=== PATIENT | male | born 1995 | race African-American/Black ===

== ENCOUNTER 2018-10-10 12:31 | Inpatient (IN) | payer OTHER ==
[~2018-10-10] VITALS: Ht 182.9 cm; Wt 82.6 kg
--- NOTE | 2018-10-10 12:41 | NUR ---
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 on room air, breathing evenly and unlabored. Connected to the monitor and pulse ox. Kept comfortable, will continue to monitor accordingly.
[2018-10-10 13:51] LABS: BASOPHILS % (AUTO) 0.4 % (0.0-2.0); EOSINOPHILS % (AUTO) 0.6 % (0.0-6.0); HEMATOCRIT 43 % (39-51); HEMOGLOBIN 14.6 g/dL (13.5-17.5); LYMPHOCYTES % (AUTO) 13.3 % (20.0-44.0); MEAN CORPUSCULAR HGB CONC 34 g/dl (31.0-36.0); MEAN CORPUSCULAR VOLUME 95 fL (80-96); MONOCYTES # (AUTO) 0.6 /CMM (0.1-1.30); MONOCYTES % (AUTO) 7.8 % (2.0-12.0); NEUTROPHILS # (AUTO) 6.1 /CMM (1.8-8.9); NEUTROPHILS % (AUTO) 77.9 % (43.0-81.0); PLATELET COUNT (AUTO) 239 /CMM (150-450); RED BLOOD CELL COUNT(AUTO) 4.56 MIL/uL (4.5-6.0); WHITE BLOOD COUNT (AUTO) 7.8 K/uL (4.3-11.0)
[2018-10-10 14:02] LABS: CALCIUM, SERUM 8.5 mg/dL (8.5-10.1); CARBON DIOXIDE 28 mmol/L (21-32); CHLORIDE 102 mmol/L (98-107); GLUCOSE 87 mg/dL (74-106); POTASSIUM 3.4 mmol/L (3.5-5.1); SODIUM SERUM 141 mmol/L (136-145); UREA NITROGEN, BLOOD 12 mg/dL (7-18)
[2018-10-10 14:11] LABS: ACETAMINOPHEN < 2 ug/ml (10-30); ALANINE AMINOTRANSFERASE 39 U/L (12-78); ALBUMIN 3.7 g/dL (3.4-5.0); ALCOHOL, BLOOD 27 mg/dL (0-0); ALKALINE PHOSPHATASE 103 U/L (46-116); ASPARTATE AMINOTRANSFERASE 28 U/L (15-37); BILIRUBIN,TOTAL 0.3 mg/dL (0.2-1.0); SALICYLATE < 2.8 mg/dL (2.8-20.0); TOTAL PROTEIN, SERUM 8.2 g/dL (6.4-8.2)
[2018-10-10 15:47] LABS: APPEARANCE,URINE Clear (CLEAR); BILIRUBIN,URINE Negative (NEGATIVE); BLOOD, URINE Trace-intact Ery/uL (NEGATIVE); COLOR,URINE Yellow (YELLOW); KETONES,URINE Negative (NEGATIVE); LEUKOCYTE ESTERASE ,URINE Negative (NEGATIVE); NITRITE, URINE Negative (NEGATIVE); PROTEIN,URINE Trace mg/dl (NEGATIVE); UGLUCOSE Negative (NEGATIVE); UROBILINOGEN,URINE 0.2 EU/dL (0.2)
[2018-10-10 16:10] LABS: BACTERIA,URINE Rare /HPF (None Seen); RBC,URINE 0-2 /HPF (0-2); SQUAMOUS EPITHELIAL CELL,UR Rare /HPF (None Seen); WBC,URINE 0-2 /HPF (0-3)
--- NOTE | 2018-10-10 16:29 | NUR ---
CALLED FOR MED SURGE BED, AND TURNED IN MOVE SHEET
--- NOTE | 2018-10-10 17:02 | NUR ---
received a call from house sup patient is going to room 316-2.
--- NOTE | 2018-10-10 17:43 | NUR ---
REPORT GIVEN TO SUSAN HALL FOR RADHA.
--- NOTE | 2018-10-10 18:16 | NUR ---
CALLED [facility], PAGED MYSTERY SHOPPER
--- NOTE | 2018-10-10 18:35 | NUR ---
DR GUZMAN CALLED AND SPOKE WITH PA
[2018-10-10] MEDS ORDERED: IV 1/2NS 1000 ML 1,000 ML IV PRN (19:22)
[2018-10-10] MEDS ORDERED: ACETAMINOPHEN 325 MG TABLET PO PRN (19:30)
[2018-10-10] MEDS ORDERED: MAG HYDROX/AL HYDROX/SIMETH 30 ML UDC PO PRN (19:30)
[2018-10-10] MEDS ORDERED: MAGNESIUM HYDROXIDE 30 ML UDC PO PRN (19:30)
[2018-10-10] MEDS ORDERED: ONDANSETRON HCL/PF 4 MG/2 ML VIAL IVP PRN (19:30)
[2018-10-10] MEDS ORDERED: Z GUARD REMEDY 2 OZ OINT TP PRN (19:30)
--- NOTE | 2018-10-10 19:30 | NUR ---
MS MILLER INITIAL NOTES RECEIVED PT FROM ER VIA [facility] ACCOMPANIED BY ER NURSE AND POLICE. DX OF ACUTE TOXIC ENCEPHALOPATY. PATIENT WITH HX OF AMPHETAMINE AND HEROIN ABUSE IN POLICE CUSTODY, HE'S LETHARGIC BUT AROUSE TO HIS NAME AND TOUCH. BREATHING EVEN AND NON-LABORED NOT IN ANY ACUTE DISTRESS NOTED. SKIN WARM AND DRY TO TOUCH. HEPLOCK ON HIS LEFT AC PATENT AND INTACT. REFUSED TO REMOVED HIS CLOTHES AT THIS TIME. RIGHT WRIST WITH HANDCUFF PER POLICE PROTOCOL. VITAL SIGNS FF. BP 144/70, PULSE 62, RESP 14. TEMP 97.7 AND O2 SAT 100 % IN ROOM AIR. KEPT HIM WARM AND COMFORTABLE AT ALL TIMES. WILL CONTINUE MONITORING.
--- NOTE | 2018-10-10 19:34 | NUR ---
wheeled patient via gurney accompanied by emt and [employer] in no apparent distress noted.
[2018-10-10 20:00] VITALS: BP 144/70
[2018-10-10 21:50] VITALS: BP 144/70
[2018-10-10] MEDS: ASPIRIN 325 MG TABLET PO SCH (23:00)
--- NOTE | 2018-10-10 23:00 | NUR ---
MS PAUL NOTES DUE MEDS GIVEN AND IVF 1/2 NS AT 125ML/HR STARTED TO INFUSED ORDERED. WILL CONTINUE MONITORING. [employer] STILL AT THE BEDSIDE.
--- NOTE | 2018-10-11 03:10 | NUR ---
ms leticia notes pt remains sleeping comfortably in bed without any distress noted. IVF still infusing. still on custody. kept him warm and comfortable at all times. will continue monitoring.
[2018-10-11 07:22] LABS: BASOPHILS % (AUTO) 0.2 % (0.0-2.0); EOSINOPHILS % (AUTO) 0.8 % (0.0-6.0); HEMATOCRIT 43 % (39-51); HEMOGLOBIN 14.6 g/dL (13.5-17.5); LYMPHOCYTES % (AUTO) 17.7 % (20.0-44.0); MEAN CORPUSCULAR HGB CONC 34 g/dl (31.0-36.0); MEAN CORPUSCULAR VOLUME 94 fL (80-96); MONOCYTES # (AUTO) 0.6 /CMM (0.1-1.30); MONOCYTES % (AUTO) 10.6 % (2.0-12.0); NEUTROPHILS # (AUTO) 4.1 /CMM (1.8-8.9); NEUTROPHILS % (AUTO) 70.7 % (43.0-81.0); PLATELET COUNT (AUTO) 223 /CMM (150-450); RED BLOOD CELL COUNT(AUTO) 4.59 MIL/uL (4.5-6.0); WHITE BLOOD COUNT (AUTO) 5.7 K/uL (4.3-11.0)
--- NOTE | 2018-10-11 07:48 | NUR ---
MS SOCIAL WORK SPECIALIST CLOSING NOTES PT REMAIN ASLEEP BUT AROUSE TO TOUCH AND TO HIS NAME. NO SIGNS OF ANY ACUTE DISTRESS NOTED. IVF STILL INFUSING ON HIS LEFT AC, PATENT AND INTACT. POLICE STILL AT THE BEDSIDE. REFUSED TO REMOVED HIS CLOTHES .KEPT HIM WARM AND COMFORTABLE AT ALL TIMES. PLACE CALL LIGHT AT REACH. ENDORSE TO AM NURSE TYRONE FOR CONTINUITY OF CARE.
--- NOTE | 2018-10-11 07:50 | NUR ---
MS RN RECEIVED ON BED, SLEEPING, NO DISTRESS NOTED, ON POLICE CUSTODY, WILL MONITOR PATIENT'S CONDITION.
[2018-10-11 07:53] LABS: ALBUMIN 3.4 g/dL (3.4-5.0); BILIRUBIN,TOTAL 0.7 mg/dL (0.2-1.0); CALCIUM, SERUM 8.5 mg/dL (8.5-10.1); CREATININE 0.9 mg/dL (0.6-1.3); MAGNESIUM 1.8 mg/dL (1.8-2.4); PHOSPHORUS 3.7 mg/dL (2.5-4.9); POTASSIUM 3.5 mmol/L (3.5-5.1); TOTAL PROTEIN, SERUM 7.7 g/dL (6.4-8.2)
[2018-10-11 08:00] VITALS: BP 132/78
--- NOTE | 2018-10-11 09:00 | NUR ---
MS RN MS RN BREAKFAST SERVED,TOLERATED WELL.
[2018-10-11] MEDS: ASPIRIN 325 MG TABLET PO SCH (10:49)
--- NOTE | 2018-10-11 11:00 | NUR ---
MS RN WAS SEEN BY DR. GUZMAN W/ ORDER TO BE DISCHARGE TODAY.
--- NOTE | 2018-10-11 14:10 | NUR ---
MS HYPERION ANALYST INSTRUCTIONS GIVEN, PATIENT WENT TO[facility] ACCOMPANIED BY POLICE, ALL NEEDS ATTENDED,NO DISTRESS NOTED.
[2018-10-11] MEDS ORDERED: ATORVASTATIN 10 MG TABLET PO SCH (22:00)
== END 2018-10-11 14:10 | DRG 93 ==
LOC: ER 12:33 → MED 18:15
PROVIDERS: ADMIT Internal Medicine; ATTEND Internal Medicine
DX: G92 Toxic encephalopathy (principal); E87.6 Hypokalemia; Z59.0 Homelessness; F19.10 Other psychoactive substance abuse, uncomplicated; F17.200 Nicotine dependence, unspecified, uncomplicated
CPT/HCPCS: 36415; 70450-TC; 71045-TC; 80053-TC; 80061-TC; 80305; 81000-TC; 83735-TC; 84100-TC; 84484-TC; 85025-TC; 85610-TC; 85730-TC; 87081-TC; G0378; G0480; J3490